=== PATIENT | male | born 1980 | race Caucasian/White ===

== ENCOUNTER 2019-01-08 08:06 | Day surgery (SDC) | payer BC, SELFPAY ==
[2019-01-05 12:38] VITALS: BMI 34.2
[2019-01-08] VITALS (7 sets, daily range): BP systolic 96–139; BP diastolic 52–82; PULSE 72–84; RESP 16–20; TEMP 36.5–36.7; O2SAT 94–99
--- NOTE | 2019-01-08 08:56 | SUR.PREOP ---
Pt was given wrong inst sheet(he brought in with him) his arrival time for scope and time to drink second half of prep was stated with exact same time. Talked with dr Faye- pt to drink second half now and we will do precedure at a later time today. pt started seconf half at 0845 and finished at 0900 with prep and water.
--- NOTE | 2019-01-08 09:51 | HMH.ANESCL ---
[facility] Anesthesia Checklist - Patient Identification Patient Identification: Arm Band, Verbal (Name & ) - Structural Data Admitted From: Home Planned Operative Procedure/s: Colonoscopy Consent for Planned Operative Procedure(s) Verified: Yes Verified Documents: Surgical Consent, History and Physical - NPO Status Verified Time NPO: 00:00 - Additional verifications Anesthesia Reactions: No - Airway Assessment C-Spine Mobility Assessed: Yes TMJ Mobility Assessed: Yes Dentition: Good Dentition - Neurological Assessment Level of Consciousness: Awake Hx Seizures: No Numbness or tingling in extremities: No - Anesthesia Plan Anesthesia Risk discussed: Yes Anesthesia Plan: Verified ASA Class: III Anesthesia Type: MAC [facility] History I have reviewed the patient's past medical history: Yes Medical History: Reports:: Anxiety, Depression, Gastroesophageal Reflux Disease(GERD), Hypertension Denies:: Diabetes Mellitus Type 1, Diabetes Mellitus Type 2, Internal Pacemaker, Seizures *Have you ever received a pneumonia vaccine?: No (NA) *Have you received a flu vaccine this season?: No (NA) Comment:: CAMILA non complaint CPAP use Laterality Cases: Left: Carpal Tunnel Release Other Surgeries: Yes: EGD. No: Pacemaker - *Social History Smoking Status: Former smoker Alcohol Intake Frequency:: a few times a month Substance Use Type: former substance user, crack/cocaine *Occupational Status:: employed, other *Travel in the last 8 weeks: None - Psychiatric History Pschychiatric History:: Reports:: Anxiety Family Hx:: Other (NA)
--- NOTE | 2019-01-08 09:55 | P.PN_ITS ---
[facility] Anesthesia Checklist - Patient Identification Patient Identification: Arm Band, Verbal (Name & ) - Structural Data Admitted From: Home Planned Operative Procedure/s: Colonoscopy Consent for Planned Operative Procedure(s) Verified: Yes Verified Documents: Surgical Consent, History and Physical - NPO Status Verified Time NPO: 00:00 - Additional verifications Anesthesia Reactions: No - Airway Assessment C-Spine Mobility Assessed: Yes TMJ Mobility Assessed: Yes Dentition: Good Dentition - Neurological Assessment Level of Consciousness: Awake Hx Seizures: No Numbness or tingling in extremities: No - Anesthesia Plan Anesthesia Risk discussed: Yes Anesthesia Plan: Verified ASA Class: III Anesthesia Type: MAC [facility] History I have reviewed the patient's past medical history: Yes Medical History: Reports:: Anxiety, Depression, Gastroesophageal Reflux Disease(GERD), Hypertension Denies:: Diabetes Mellitus Type 1, Diabetes Mellitus Type 2, Internal Pacemaker, Seizures *Have you ever received a pneumonia vaccine?: No (NA) *Have you received a flu vaccine this season?: No (NA) Comment:: CAMILA non complaint CPAP use Laterality Cases: Left: Carpal Tunnel Release Other Surgeries: Yes: EGD. No: Pacemaker - *Social History Smoking Status: Former smoker Alcohol Intake Frequency:: a few times a month Substance Use Type: former substance user, crack/cocaine *Occupational Status:: employed, other *Travel in the last 8 weeks: None - Psychiatric History Pschychiatric History:: Reports:: Anxiety Family Hx:: Other (NA)
--- NOTE | 2019-01-08 10:10 | P.PCN_ITS ---
[facility] Procedure Note Procedure Note:: Colonoscopy Procedure Report: Colonoscopy Endoscopist: Lenny Faye II, MD Referring physician: Tk Lucero MD Date of Procedure: January 08, 2019 Equipment: Olympus 180 variable stiffness pediatric colonoscope Sedation: MAC sedation Indication: Mr. Flores is a 38-year-old gentleman who is here for diagnostic colonoscopy. He was having mid upper abdominal pain and dyspepsia. He also had some black stools but had been taking Pepto-Bismol. His upper endoscopy did show reactive gastropathy and nonerosive GERD. He does state that his mother had colon surgery for diverticulitis. He is unaware of any family history of colon cancer. He has started the fiber bowel regimen (MiraLAX plus Konsyl) and has improved bowel function. He was having incomplete defecation/incomplete evacuation of his bowels. He reports no rectal bleeding or weight loss. Procedure: Prior to the procedure, a history and physical exam was performed, and patient's medications and allergies were reviewed. The risks, benefits and alternatives of the sedation and procedure were discussed with the patient. All questions were answered and informed consent was obtained. The patient was brought to the procedure room. Patient identification and proposed procedure were verified by the physician and the nurse. The patient was placed in a left lateral decubitus position and the scope was passed under direct vision. Throughout the procedure, the patient's blood pressure, pulse, and oxygen saturations were monitored continuously. The colonoscopy was accomplished without difficulty. The patient tolerated the procedure well. Findings: On digital rectal examination there was normal rectal tone. There were no external hemorrhoids. The colonoscope was introduced through the anal canal to the rectum and advanced to the cecum. The ileocecal valve and appendiceal orifice were identified. The scope was advanced a short distance into the ileum which appeared grossly normal. The scope was then withdrawn into the colon. The cecum, ascending, transverse, descending, sigmoid and rectum were grossly normal. There were no mucosal abnormalities identified. Upon retroflexion within the rectum there were grade 1 internal hemorrhoids.The preparation was excellent throughout with [place]point Preparation Score of 9. The cecal time was 10 minutes. Impression: 1. Normal colonoscopy with intubation of the terminal ileum Plan: I would recommend continuation of the dietary measures, fiber bowel regimen (MiraLAX plus Konsyl) and FDgard.
== END 2019-01-08 10:50 | disposition home or self-care (01) ==
LOC: OUTP 08:06
PROVIDERS: PCP Family Medicine; Visit Provider Internal Medicine Gastroenterology
PROC: 0DJD8ZZ Inspection of Lower Intestinal Tract, Via Natural or Artificial Opening Endoscopic (ICD-10-PCS; CPT 45378; principal; 2019-01-08 09:30)
DX: R15.0 Incomplete defecation; K64.0 First degree hemorrhoids; Z83.79 Family history of other diseases of the digestive system; R10.84 Generalized abdominal pain
CPT/HCPCS: 45378

== ENCOUNTER 2022-01-18 21:09 | Emergency (ER) | payer BC, SELFPAY ==
[2022-01-18 21:10] VITALS: BP 165/102; PULSE 83; RESP 16; TEMP 36.7; O2SAT 99; BMI 36.2
--- NOTE | 2022-01-18 21:23 | HMH.EDGENADL ---
ED Disposition Clinical Impression: Post-op pain Disposition: Xfer Short-Term Hosp Condition on Discharge: Good Additional Instructions: Proceed to [facility] ER for orthopedic evaluation. Referrals: Provider,Referral, [Primary Care Provider] - - Critical Care Critical Care Time: No Attestation: On 01/18/22, the high probability of a clinically significant, sudden or life threatening deterioration of the following system(s) required my full and direct attention, intervention and personal management. The time I documented below is in addition to time spent performing reported procedures but includes the following listed in this critical care notation. Medical Decision Making - Medical Records Medical records reviewed: Yes: I reviewed the patient's medical records. - Jim Inquiry Pt receiving controlled substance: No Vital Signs: 01/18/22 21:10 Temperature 98.1 F Temperature Source Oral Pulse Rate [Right] 83 Respiratory Rate 16 Blood Pressure [Right Arm] 165/102 H Blood Pressure Mean [Right Arm] 123 02 Sat by Pulse Oximetry 99 Orders (Tests/Meds): ED MEDICATIONS Discontinued Medications Generic Name Dose Route Start Last Admin Trade Name Malia PRN Reason Stop Dose Admin Hydromorphone HCl 1 mg 01/18/22 21:21 01/18/22 21:32 Hydromorphone 2mg/Ml Syringe IV 01/18/22 21:22 1 mg ONCE ONE Administration Hydromorphone HCl 1 mg 01/18/22 21:40 01/18/22 21:41 Hydromorphone 2mg/Ml Syringe IV 01/18/22 21:41 1 mg ONCE ONE Administration Medical Decision Narrative: 41-year-old male presents with severe postoperative pain cannot get a reliable exam due to fixed flexion of the fingers that he will not straighten and states that he cannot straighten them. He he had hardware removed from earlier today. He does have significant hyperalgesia pain issues. Took 25 mg of oxycodone before arrival and was given 2 mg of Dilaudid on arrival here. This did not touch his pain still cannot get a reliable exam given that he is immediately postop talked to Dr. Cruz at [facility] who agreed to evaluate the patient in the emergency department. General Adult HPI - General Stated complaint: sURG PAIN l WRIST Time Seen by Provider: 01/18/22 21:23 Mode of Arrival: Ambulatory Source of Information: Patient Limitations: No Limitations - History of Present Illness HPI narrative: 41-year-old male who is status post plate removal with orthopedics and is presenting today for severe pain and bleeding. Patient does have significant pain control issues given his Suboxone use and recovery from opiates. After his surgery several weeks ago he was on 25 mg of oxycodone every 4 hours. Since the surgery today he has had severe pain and now states that he cannot straighten his fingers. He denies numbness to the fingers states that he cannot extend them. This is occurred over the last several hours. He took 25 of oxycodone prior to arrival did not improve his pain. Pain is 10 out of 10 at this time. - Related Data Home Medications Medication Instructions Recorded Confirmed Buprenorphine HCl/Naloxone HCl 1 each SL DAILY 10/08/18 01/08/19 [Suboxone 2 mg-0.5 mg Sl Film] Omeprazole [Omeprazole 20mg Tab] 20 mg PO DAILY 10/08/18 01/08/19 hydrOXYzine HCL [Hydroxyzine HCl] 10 mg PO DAILY 10/08/18 01/08/19 lisinopriL [Lisinopril 10mg Tab] 10 mg PO DAILY 10/08/18 01/08/19 risperiDONE [Risperidone] 2 mg PO DAILY 10/08/18 01/08/19 Allergies Allergy/AdvReac Type Severity Reaction Status Date / Time No Known Allergies Allergy Verified 01/08/19 08:55 [facility] History - Hepatitis A Screen Attestation statement:: This patient has been screened for Hepatitis A risk factors. Medical History: Reports:: Anxiety, Depression, Gastroesophageal Reflux Disease(GERD), Hypertension, Lung Disease (supposed to use cpap (does not use)- sleep apnea) Denies:: Diabetes Mellitus Type 1, Diabetes
--- NOTE | 2022-01-18 21:58 | PC.NURSE ---
calling [facility] for poss transport
--- NOTE | 2022-01-18 22:01 | PC.NURSE ---
Phone call to transfer center, Dr. Cruz, ortho on phone with ED doctor
--- NOTE | 2022-01-18 22:08 | PC.NURSE ---
ED spoke with Dr. Cruz, ortho at , patient is being transferred to by POV
[2022-01-18 22:13] VITALS: BP 155/95; PULSE 55; O2SAT 99
[2022-01-18 22:18] VITALS: BP 155/95; PULSE 53; RESP 18; TEMP 36.7; O2SAT 99
== END 2022-01-18 22:19 | disposition short-term general hospital (02) ==
PROVIDERS: Emergency Provider Student in an Organized Health Care Education/Training Program
DX: G89.18 Other acute postprocedural pain (principal); Z87.39 Personal history of other diseases of the musculoskeletal system and connective tissue; F11.11 Opioid abuse, in remission; Z79.891 Long term (current) use of opiate analgesic
CPT/HCPCS: 96374; 96375; 99284